=== PATIENT | female | born 1990 | race Caucasian/White ===

== ENCOUNTER 2017-02-17 16:06 | Emergency (ER) | payer MEDICAID ==
[2017-02-17 16:14] VITALS: BP 99/61
--- NOTE | 2017-02-17 16:39 | UC ---
General HPI - HPI Summary HPI Summary: complaint of finding a tick on her left leg today unsure of how long it was attached but probably less than 24 hours another bite site on the same leg denies fever and fatigue - History of Current Complaint Chief Complaint: UCSkin Stated Complaint: TICK BITE Time Seen by Provider: 02/17/17 16:32 Hx Obtained From: Patient - Allergy/Home Medications Allergies/Adverse Reactions: Allergies Allergy/AdvReac Type Severity Reaction Status Date / Time No Known Allergies Allergy Verified 02/17/17 16:07 PMH/Surg Hx/FS Hx/Imm Hx Previously Healthy: Yes - Surgical History Surgical History: Yes Surgery Procedure, Year, and Place: left ear - Family History Known Family History: Negative: Cardiac Disease, Hypertension, Diabetes - Social History Occupation: Employed Full-time Lives: With Family Alcohol Use: Occasionally Substance Use Type: None Smoking Status (MU): Never Smoked Tobacco Review of Systems Constitutional: Negative Skin: Rash Eyes: Negative ENT: Negative Respiratory: Negative Cardiovascular: Negative Gastrointestinal: Negative Genitourinary: Negative Motor: Negative Neurovascular: Negative Musculoskeletal: Negative Neurological: Negative Psychological: Negative All Other Systems Reviewed And Are Negative: Yes Physical Exam Triage Information Reviewed: Yes Appearance: No Pain Distress, Well-Nourished Vital Signs: Initial Vital Signs Temp 99.7 F 02/17/17 16:08 Pulse 63 02/17/17 16:08 Resp 16 02/17/17 16:08 BP 99/61 02/17/17 16:08 Pulse Ox 100 02/17/17 16:08 Vital Signs Reviewed: Yes Eyes: Positive: Conjunctiva Clear ENT: Positive: Pharynx normal, Nasal congestion, TMs normal Neck: Positive: No Lymphadenopathy Respiratory: Positive: Lungs clear, Normal breath sounds, No respiratory distress, No accessory muscle use Cardiovascular: Positive: RRR, No Murmur, Pulses Normal Musculoskeletal Exam: Normal Neurological: Positive: Alert Psychological Exam: Normal Skin: Positive: Other - left thigh with two areas [id number] of erythema Course/Dx - Course Course Of Treatment: exam completed. will give prophylactic dose of doxycycline. discussed finding a primary care provider -infomration givene to patient - Differential Dx - Multi-Symptom Provider Diagnoses: tick bite Discharge - Discharge Plan Condition: Stable Disposition: HOME Prescriptions: DOXYcycline CAP(*) [DOXYcycline 100MG CAP(*)] 100 mg PO DAILY #2 cap Patient Education Materials: Tick Bite (ED) Referrals: [facility] [Outside] Additional Instructions: Please start antibiotic as directed Increase fluids and rest Take acetaminophen or ibuprofen for fever or pain Please review your discharge instructions. If your symptoms do not improve please call your primary care provider or return to urgent care.
== END 2017-02-17 16:57 | disposition home or self-care (01) ==
LOC: UCEAST 16:06
DX: S70.362A Insect bite (nonvenomous), left thigh, initial encounter (principal); W57.XXXA Bitten or stung by nonvenomous insect and other nonvenomous arthropods, initial encounter; Y93.9 Activity, unspecified; Y92.9 Unspecified place or not applicable; Y99.9 Unspecified external cause status
CPT/HCPCS: 99202; G0463

== ENCOUNTER 2017-02-26 12:24 | Emergency (ER) | payer MEDICAID ==
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
[2017-02-26 14:50] VITALS: BP 95/60
== END 2017-02-26 14:45 | disposition home or self-care (01) ==
LOC: UCEAST 12:24
DX: H92.02 Otalgia, left ear (principal)
CPT/HCPCS: 99212; G0463

== ENCOUNTER 2017-03-09 14:32 | Observation (INO) | payer MEDICAID ==
[2017-03-09] MEDS ORDERED: Famotidine IV* 10 MG/ML 2 ML (20 mg) IV SLOW PU ONE (15:47)
[2017-03-09] MEDS ORDERED: Ondansetron INJ* 2 MG/ML VIAL IV ONE (15:47)
[2017-03-09] MEDS ORDERED: Ketorolac INJ* 30 MG/ML 1 ML VIAL IV ONE (15:57)
[2017-03-09 16:49] LABS: Hematocrit 47 % (35-47); Hemoglobin 15.5 g/dl (12.0-16.0); Mean Corpuscular HGB Conc 33 g/dl (31-36); Mean Corpuscular Hemoglobin 29 pg (27-31); Mean Corpuscular Volume 88 fL (80-97); Mean Platelet Volume 8 um3 (7.4-10.4); Red Blood Count 5.33 10^6/ul (4.0-5.4); Red Cell Distribution Width 13 % (10.5-15); White Blood Count 28.4 10^3/ul (3.5-10.8)
[2017-03-09 16:51] LABS: Add Diff/Slide Review? Slide Review Added; Comments Flag Yes
[2017-03-09 16:56] LABS: POC Potassium 3.2 mmol/L (3.5-4.9); POC Sodium 143 mmol/L (138-146)
[2017-03-09 16:57] LABS: Anion Gap 12 mmol/L (2-11); EGFR African American 130.1 (>60); EGFR Non-African American 101.1 (>60); Manual Entry Verification MD; POC CO2 Carbon Dioxide 27 mmol/L (24-29); POC Chloride 104 mmol/L (98-109); POC Glucose 196 mg/dL (70-105)
[2017-03-09] MEDS ORDERED: hydrOXYzine HCL TAB* 50 MG PO ONE (17:37)
[2017-03-09 18:13] LABS: ALT 13 U/L (7-52); AST 16 U/L (13-39); Albumin 3.6 g/dL (3.2-5.2); Alkaline Phosphatase 40 U/L (34-104); BUN/Creatinine Ratio 12.8 (8-20); Blood Urea Nitrogen 10 mg/dL (6-24); CO2 Carbon Dioxide 23 mmol/L (22-32); Calcium 8.6 mg/dL (8.6-10.3); EGFR African American 114.8 (>60); EGFR Non-African American 89.3 (>60); Globulin 2.5 g/dL (2-4); Glucose 198 mg/dL (70-100); Total Protein 6.1 g/dL (6.4-8.9)
[2017-03-09] MEDS ORDERED: Ondansetron INJ* 2 MG/ML VIAL IV PRN (18:48)
[2017-03-09] MEDS ORDERED: EPINEPHrine AMP 1 MG/ML IM PRN (18:52)
[2017-03-09 22:17] LABS: Anion Gap 9 mmol/L (2-11); Chloride 108 mmol/L (101-111); Potassium 3.4 mmol/L (3.5-5.0); Sodium 140 mmol/L (133-145)
[2017-03-09] MEDS: Famotidine IV* 10 MG/ML 2 ML (20 mg) IV SCH (23:30)
[2017-03-09] MEDS: diPHENhydraMINE IV* 50 MG/ML 1 ml VIAL (BENADRYL) IV SCH (23:30)
[2017-03-10 04:23] VITALS: BP 99/51
--- NOTE | 2017-03-10 06:24 | HP ---
HOSPITAL MEDICINE HISTORY AND PHYSICAL: DATE OF ADMISSION: 03/09/17 PRIMARY CARE PHYSICIAN: None. ATTENDING PHYSICIAN: Dr. Pham Carty * (dictation provided by Michela Hein NP ). CHIEF COMPLAINT: Allergic rash. HISTORY OF PRESENT ILLNESS: Ms. 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 Ms. Elena states that she has been in her normal state of health with no acute complaints today. She was outside when she was stung by several flying insects. Unfortunately she did not have her EpiPen. She states that she began to panic. She had nausea, shortness of breath, diaphoresis. She was screaming for help and ultimately EMS was alerted. She was given epinephrine and transported to the ER. In the emergency room, Ms. Bach was doing well and plans were for her to be discharged. However, she developed to her lips and, therefore, plans are for her to be observed overnight. PAST MEDICAL HISTORY: None. MEDICATIONS: None. ALLERGIES: BEE and WASP STINGS. FAMILY HISTORY: Reviewed and noncontributory. SOCIAL HISTORY: No report of alcohol, tobacco, or drug use. She states that her landlord, Lv, would be the healthcare proxy. His phone number is [phone]. REVIEW OF SYSTEMS: A 14-point review of systems was completed with Ms. Elena and those not mentioned above were negative. PHYSICAL EXAMINATION GENERAL: Ms. Elena is sitting in the bed. She is in no acute distress. VITAL SIGNS: Temperature 98.2, heart rate 94, respiratory rate 12, O2 saturation 100% on room air, blood pressure 91/66. HEENT: Normocephalic, EOMs intact, lips swollen, no edema noted to posterior pharynx. LUNGS: Clear to auscultation bilaterally with no accessory muscle use and good aeration. HEART: S1, S2. No murmur, rub, or gallop and regular. ABDOMEN: Soft, nontender with bowel sounds positive x4. EXTREMITIES: No cyanosis or edema. SKIN: Intact. NEUROLOGIC: She is alert. She is oriented x3. She moves all extremities equally. There is no facial asymmetry or focal weakness. Extraocular movements are intact. DIAGNOSTIC STUDIES/LAB DATA: WBC 28.4, hemoglobin 15.5, hematocrit 47, platelet count 236. Sodium 143, potassium 3.2, chloride 104, serum bicarbonate 27, BUN 10, creatinine 0.78. Beta HCG is less than 0.60. Glucose 198. ASSESSMENT: Ms. Elena is a 26-year-old female with known allergy to BEE and WASP, who presented to the hospital after being stung today. She has received epinephrine, famotidine, and hydroxyzine in the ED In the emergency room, she had persistent circumoral swelling and, therefore, she is going to be observed in the hospital overnight. Plans are as follows: 1. Allergic reaction. The patient will continue with famotidine and Benadryl. She will have epinephrine available if needed. 2. DVT prophylaxis with early mobility. 3. Disposition to medical floor or telemetry floor. TIME SPENT: Approximately 60 minutes were spent on the admission of this patient, more than half time spent with the patient at the bedside reviewing the events leading up to this hospitalization, performing the physical examination, and reviewing the plan of care. MICHELA HEIN NP [id number]/[facility] #: [id number] GUS
[2017-03-10] MEDS: Famotidine IV* 10 MG/ML 2 ML (20 mg) IV SCH (06:47)
[2017-03-10] MEDS: diPHENhydraMINE IV* 50 MG/ML 1 ml VIAL (BENADRYL) IV SCH (06:47)
--- NOTE | 2017-03-10 07:47 | PN ---
Subjective Date of Service: 03/10/17 Interval History: Ms. Elena states that she is feeling much better today. She does have some tightness in her throat and chest. She confirms feeling very anxious and states she "needs a good cry." She denies SOB, nausea, or abdominal pain. Objective Active Medications: Diphenhydramine HCl (Benadryl Iv*) 25 mg IV Q6H KYLEE Epinephrine HCl (Epinephrine Amp 1 Mg/Ml*) 0.3 mg IM ONCE PRN Famotidine (Pepcid Iv*) 20 mg IV Q6H KYLEE Ondansetron HCl (Zofran Inj*) 4 mg IV Q6H PRN Vital Signs 03/09/17 03/09/17 03/09/17 19:30 20:00 20:38 Temperature Pulse Rate 88 89 Respiratory 13 17 13 Rate Blood Pressure 103/66 95/62 (mmHg) O2 Sat by Pulse 98 98 Oximetry 03/09/17 03/09/17 03/09/17 20:45 21:00 22:00 Temperature 98.1 F Pulse Rate 86 Respiratory 18 12 14 Rate Blood Pressure 102/58 (mmHg) O2 Sat by Pulse 98 Oximetry 03/09/17 03/09/17 03/09/17 23:00 23:30 23:51 Temperature 97.7 F Pulse Rate 74 Respiratory 18 16 18 Rate Blood Pressure 102/48 (mmHg) O2 Sat by Pulse 99 Oximetry 03/10/17 03/10/17 03/10/17 00:00 00:30 01:00 Temperature Pulse Rate Respiratory 5 14 24 Rate Blood Pressure (mmHg) O2 Sat by Pulse Oximetry 03/10/17 03/10/17 03/10/17 02:00 03:00 04:00 Temperature Pulse Rate Respiratory 17 15 13 Rate Blood Pressure (mmHg) O2 Sat by Pulse Oximetry 03/10/17 03/10/17 04:01 06:47 Temperature 98.6 F Pulse Rate 67 Respiratory 18 16 Rate Blood Pressure 99/51 (mmHg) O2 Sat by Pulse 98 Oximetry Oxygen Devices in Use Now: None Appearance: Female lying in bed in NAD Eyes: No Scleral Icterus Ears/Nose/Mouth/Throat: Mucous Membranes Moist Neck: Trachea Midline Respiratory: Symmetrical Chest Expansion and Respiratory Effort, Clear to Auscultation Cardiovascular: NL Sounds; No Murmurs; No JVD, No Edema Abdominal: NL Sounds; No Tenderness; No Distention Lymphatic: No Cervical Adenopathy Extremities: No Edema Skin: No Rash or Ulcers Neurological: Alert and Oriented x 3, NL Muscle Strength and Tone Nutrition: Taking PO's Result Diagrams: 03/09/17 16:27 03/09/17 16:27 Assess/Plan/Problems-Billing Assessment: Ms. Elena is a 26 yo female with no significant PMH who was admitted on 03/09/17 after an allergic reaction to a bee or wasp sting. - Patient Problems (1) Allergic reaction Comment: - Lip swelling resolved, patient denies SOB or any sense of airway constriction and is breathing easily. - Providing script for epi pens. - Patient does report a very mild sensation of constriction in her chest which I suspect is related to anxiety which patient strongly endorses. She has been monitored on telemetry overnight with no evidence of arrhythmia, will obtain an EKG prior to discharge. Status and Disposition: OBV. Discharge to home.
--- NOTE | 2017-03-10 14:56 | ED ---
I, Trent,David, scribed for Eulogio Monterroso MD on 03/09/17 at 1454 . Allergic Reaction/Systemic - HPI Summary HPI Summary: This 26 y/o female presents to ED via ambulance for allergic reaction after 4 bee/wasp stings around 1330 PM today. Pt confirms positive prior reaction to bee stings with hives and diaphoresis. Positive hives and dyspnea with today's stings. Pt was given 50 mg Benadryl, 10 mg dexamethasone, and 1x epi by EMS COMMUNICATION SPEC , which have alleviate dyspnea. - History of Current Complaint Chief Complaint: EDAllergicReaction Time Seen by Provider: 03/09/17 14:46 Hx Obtained From: Patient Hx Last Menstrual Period: now Onset/Duration: Sudden Onset Timing: Constant Pain Intensity: 3 Pain Scale Used: 0-10 Numeric Aggravating Factor(s): Nothing Alleviating Factor(s): Antihistamines, Epinephrine, Other - dexamethasone Associated Signs And Symptoms: Positive: Difficulty Breathing, Rash - Allergies/Home Medications Allergies/Adverse Reactions: Allergies Allergy/AdvReac Type Severity Reaction Status Date / Time No Known Allergies Allergy Verified 02/26/17 12:43 PMH/Surg Hx/FS Hx/Imm Hx Endocrine/Hematology History: Denies: Hx Diabetes, Hx Thyroid Disease Cardiovascular History: Denies: Hx Hypertension Respiratory History: Denies: Hx Asthma, Hx Chronic Obstructive Pulmonary Disease (COPD) GI History: Denies: Hx Ulcer - Surgical History Surgery Procedure, Year, and Place: left ear Infectious Disease History: No Infectious Disease History: Denies: Hx Clostridium Difficile, Hx Hepatitis, Hx Human Immunodeficiency Virus (HIV), Hx of Known/Suspected MRSA, Hx Shingles, Hx Tuberculosis, Hx Known/ Suspected VRE, Hx Known/Suspected VRSA, History Other Infectious Disease, Traveled Outside the [place] in Last 30 Days - Family History Known Family History: Negative: Cardiac Disease, Hypertension, Diabetes - Social History Alcohol Use: Occasionally Hx Substance Use: No Substance Use Type: Reports: None Hx Tobacco Use: No Smoking Status (MU): Never Smoked Tobacco Review of Systems Positive: Other - Positive bee stings. Negative: Fever Positive: Shortness Of Breath Positive: Other - hives All Other Systems Reviewed And Are Negative: Yes Physical Exam Triage Information Reviewed: Yes Vital Signs On Initial Exam: Initial Vitals Temp Pulse Resp BP Pulse Ox 97.0 F 95 24 102/70 99 03/09/17 14:33 03/09/17 14:33 03/09/17 14:33 03/09/17 14:33 03/09/17 14:33 Vital Signs Reviewed: Yes Appearance: Positive: Well-Nourished, Ill-Appearing Skin: Positive: Other - diffusely erythematous Head/Face: Positive: Normal Head/Face Inspection Eyes: Positive: Normal ENT: Positive: Normal ENT inspection Neck: Positive: Supple, Nontender Respiratory/Lung Sounds: Negative: Wheezes Cardiovascular: Positive: Normal Abdomen Description: Positive: Nontender, Soft Musculoskeletal: Positive: Normal Neurological: Positive: Normal, Other - Tremors AVPU Assessment: Alert Diagnostics - Vital Signs Vital Signs Temp Pulse Resp BP Pulse Ox 03/09/17 14:42 98.2 F 92 19 118/68 100 03/09/17 14:33 97.0 F 95 24 102/70 99 - Laboratory Lab Results: Lab Results 03/09/17 03/09/17 03/09/17 Range/Units 16:27 16:27 16:27 WBC 28.4 H (3.5-10.8) 10^3/ul RBC 5.33 (4.0-5.4) 10^6/ul Hgb 15.5 (12.0-16.0) g/dl Hct 47 (35-47) % MCV 88 (80-97) fL MCH 29 (27-31) pg MCHC 33 (31-36) g/dl RDW 13 (10.5-15) % Plt Count 236 (150-450) 10^3/ul MPV 8 (7.4-10.4) um3 Neut % (Auto) 93.8 H (38-83) % Lymph % (Auto) 3.7 L (25-47) % Hale % (Auto) 2.2 (1-9) % Eos % (Auto) 0 (0-6) % Baso % (Auto) 0.3 (0-2) % Absolute Neuts (auto) 26.6 H (1.5-7.7) 10^3/ul Absolute Lymphs (auto) 1.1 (1.0-4.8) 10^3/ul Absolute Monos (auto) 0.6 (0-0.8) 10^3/ul Absolute Eos (auto) 0 (0-0.6) 10^3/ul Absolute Basos (auto) 0.1 (0-0.2) 10^3/ul Absolute Nucleated RBC 0.01 10^3/ul Nucleated RBC % 0 POC Venous Sodium 143 (138-146) mmol/L Sodium 140 (133-145) mmol/L POC Venous Potassium 3.2 L (3.5-4.9) mmol/L Potassium 3.4 L (3.5-5.0) mmol/L POC Venous Chloride 104 (98-109) mmol/L Chloride 108 (101-111) mmol/L Carbon Dioxide 23 (22-32) mmol/L POC Venous Total CO2 27 (24-29) mmol/L Anion Gap 9 12 H (2-11) mmol/L BUN 10 (6-24) mg/dL POC Venous BUN 10 (8-26) mg/dL Creatinine 0.78 (0.51-0.95) mg/dL POC Venous Creatinine 0.70 (0.6-1.3) mg/dL Est GFR ( Amer) 114.8 130.1 (>60) Est GFR (Non-Af Amer) 89.3 101.1 (>60) BUN/Creatinine Ratio 12.8 14.3 (8-20) Glucose 198 H (70-100) mg/dL POC Venous Glucose 196 H (70-105) mg/dL Calcium 8.6 (8.6-10.3) mg/dL Total Bilirubin 0.90 (0.2-1.0) mg/dL AST 16 (13-39) U/L ALT 13 (7-52) U/L Alkaline Phosphatase 40 (34-104) U/L Total Protein 6.1 L (6.4-8.9) g/dL Albumin 3.6 (3.2-5.2) g/dL Globulin 2.5 (2-4) g/dL Albumin/Globulin Ratio 1.4 (1-3) Beta HCG, Quant < 0.60 mIU/mL Result Diagrams: 03/09/17 16:27 03/09/17 16:27 Lab Statement: Any lab studies that have been ordered have been reviewed, and results considered in the medical decision making process. Re-Evaluation - Re-Evaluation First Eval Re-Evaluation Time: 15:55 Second Eval Re-Evaluation Time: 17:19 Third Eval Re-Evaluation Time: 18:12 Change: Worse Comment: Pt reports chest tightness. Allergic Reaction Course/Dx - Course Course Of Treatment: Ms. Elena had a significant allergic reaction to an insect bite/sting today. She improved initially with medications but then began to worsen again when the epi wore off. I consulted the hospitalists for her safety. - Diagnoses Provider Diagnoses: Anaphylactic reaction - Provider Notifications Discussed Care Of Patient With: Pham Carty Time Discussed With Above Provider: 18:15 Discharge - Discharge Plan Condition: Stable Disposition: ADMITTED TO [facility] documentation as recorded by the Trent portillo Soohyun accurately reflects the service I personally performed and the decisions made by me, Eulogio Monterroso MD.
== END 2017-03-10 08:20 | disposition home or self-care (01) ==
LOC: ED 14:32 → MEDTELE 19:14
PROVIDERS: ADMIT Internal Medicine; ATTEND Internal Medicine
DX: T63.441A Toxic effect of venom of bees, accidental (unintentional), initial encounter (principal); R06.02 Shortness of breath; R11.0 Nausea; R61 Generalized hyperhidrosis; R22.0 Localized swelling, mass and lump, head; L50.9 Urticaria, unspecified; R07.89 Other chest pain
CPT/HCPCS: 36415; 80048; 80053; 84702; 85025; 93005; 96374; 96375; 99284; A9270-GY; G0378; J1200; J1885; J2405

== ENCOUNTER 2017-03-10 17:09 | Emergency (ER) | payer MEDICAID ==
[2017-03-10] MEDS ORDERED: diPHENhydraMINE IV* 50 MG/ML 1 ml VIAL (BENADRYL) IV ONE (19:06)
[2017-03-10] MEDS ORDERED: diPHENhydraMINE IV* 50 MG/ML 1 ml VIAL (BENADRYL) ONE ×2 (19:07)
[2017-03-10] MEDS ORDERED: Famotidine IV* 10 MG/ML 2 ML (20 mg) IV SLOW PU ONE (19:17)
[2017-03-10] MEDS ORDERED: predniSONE TAB* 20 MG PO ONE (19:17)
[2017-03-10] MEDS ORDERED: Ondansetron INJ* 2 MG/ML VIAL IV ONE (19:17)
[2017-03-10] MEDS ORDERED: Dexamethasone IV* 4 MG/ML 1 ML (4 MG) IV SLOW PU ONE (19:19)
--- NOTE | 2017-03-10 19:32 | ED ---
Allergic Reaction/Systemic - HPI Summary HPI Summary: 26 female presents with complaints of having an allergic reaction to 6-7 wasp stings yesterday 03/09/17. 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 Patient states she was brought in via ambulance last night, given epi and decadron. Was observed over night and went home this morning around 8am. Was not given any medications to take at home. Given Benadryl before discharge at 8am. Has not taken any other medications today. States her hives on her face appear to have worsened although hives on her extremities and trunk have improved. She denies any respiratory distress however admits to having a tight chest, especially when taking deep breaths. She also states she is nauseous and nervous as she almost yesterday. No PMHx. No medications. No other complaints at this time. No swelling in throat or difficulty swallowing. - History of Current Complaint Chief Complaint: EDAllergicReaction Time Seen by Provider: 03/10/17 19:06 Hx Obtained From: Patient Hx Last Menstrual Period: now Onset/Duration: Sudden Onset, Started days ago - yesterday Timing: Constant Severity Initially: Severe Severity Currently: Moderate Pain Intensity: 0 Pain Scale Used: 0-10 Numeric Location: Diffuse Character: Swelling, Pruritus, Hives Aggravating Factor(s): Nothing Alleviating Factor(s): Antihistamines, Epinephrine Associated Signs And Symptoms: Positive: Cough Wheezing - chest tightnesss, Rash - Related Hx Possible Reaction To: Insect - wasp - Allergies/Home Medications Allergies/Adverse Reactions: Allergies Allergy/AdvReac Type Severity Reaction Status Date / Time Bee Venom Allergy Anaphylatic Verified 03/10/17 19:34 Shock PMH/Surg Hx/FS Hx/Imm Hx Endocrine/Hematology History: Denies: Hx Diabetes, Hx Thyroid Disease Cardiovascular History: Denies: Hx Hypertension Respiratory History: Denies: Hx Asthma, Hx Chronic Obstructive Pulmonary Disease (COPD) GI History: Denies: Hx Ulcer Sensory History: Denies: Hx Contacts or Glasses, Hx Hearing Aid Opthamlomology History: Denies: Hx Contacts or Glasses - Surgical History Surgery Procedure, Year, and Place: left ear - Immunization History Immunizations Up to Date: Yes Infectious Disease History: Denies: Hx Clostridium Difficile, Hx Hepatitis, Hx Human Immunodeficiency Virus (HIV), Hx of Known/Suspected MRSA, Hx Shingles, Hx Tuberculosis, Hx Known/ Suspected VRE, Hx Known/Suspected VRSA, History Other Infectious Disease, Traveled Outside the [place] in Last 30 Days - Family History Known Family History: Positive: None Negative: Cardiac Disease, Hypertension, Diabetes - Social History Alcohol Use: Occasionally Hx Substance Use: No Substance Use Type: Reports: None Hx Tobacco Use: No Smoking Status (MU): Never Smoked Tobacco Review of Systems Constitutional: Negative Cardiovascular: Negative Positive: Other - tightness Respiratory: Negative Gastrointestinal: Negative Musculoskeletal: Negative Positive: Rash - hives Positive: Weakness All Other Systems Reviewed And Are Negative: Yes Physical Exam Triage Information Reviewed: Yes Vital Signs On Initial Exam: Initial Vitals Temp Pulse Resp BP Pulse Ox 100.3 F 111 20 102/73 100 03/10/17 17:20 03/10/17 17:20 03/10/17 17:20 03/10/17 17:20 03/10/17 17:20 Vital Signs Reviewed: Yes Appearance: Positive: Well-Appearing, No Pain Distress, Well-Nourished Skin: Positive: Warm, Skin Color Reflects Adequate Perfusion, Dry, Erythema @ - throughout face, and on extremities, chest, diffuse- urticaria. has improved since last night however still present, patient states face rash has seemed to worsen since last night Head/Face: Positive: Normal Head/Face Inspection - besides urticaria as stated above Eyes: Positive: Normal, Conjunctiva Clear ENT: Positive: Normal ENT inspection, Hearing grossly normal, Pharynx normal, TMs normal, Other - no edema of tongue. Negative: Trismus, Muffled/hoarse voice Neck: Positive: Supple, Nontender, No Lymphadenopathy Respiratory/Lung Sounds: Positive: Clear to Auscultation, Breath Sounds Present. Negative: Rales, Rhonchi, Wheezes Cardiovascular: Positive: Normal, RRR, Pulses are Symmetrical in both Upper and Lower Extremities. Negative: Murmur, Rub Abdomen Description: Positive: Nontender, Soft Bowel Sounds: Positive: Present Musculoskeletal: Positive: Normal, Strength/ROM Intact Neurological: Positive: Normal, Sensory/Motor Intact, Alert, Oriented to Person Place, Time Psychiatric: Positive: Affect/Mood Appropriate, Anxious Diagnostics - Vital Signs Vital Signs Temp Pulse Resp BP Pulse Ox 03/10/17 18:06 99.9 F 98 20 101/75 99 03/10/17 17:20 100.3 F 111 20 102/73 100 - Laboratory Lab Statement: Any lab studies that have been ordered have been reviewed, and results considered in the medical decision making process. Re-Evaluation - Re-Evaluation First Eval Re-Evaluation Time: 20:51 Change: Improved - patient had significant improvement of symptoms after medications, facial rash appeared much better. Allergic Reaction Course/Dx - Course Course Of Treatment: given benadryl, famotidine and decadron for urticaria/ allergen. zofran for nausea. had relief. appears medications ran out and she was experiencing similar symptoms again. due to no life threatening symptoms or signs will d/c home with steroid and benadryl to continue for 7 days. Patient aware and agrees with plan. Had significant relief in rash while in ED. Aware of worsening signs and symptoms to watch out for. Already has script for epi pen. Follow up with PCP. - Diagnoses Differential Diagnosis/HQI/PQRI: Positive: Anaphylaxis, Local Allergic Reaction , Urticaria Provider Diagnoses: Allergic reaction to bee sting, Urticaria Discharge - Discharge Plan Condition: Stable Disposition: HOME Patient Education Materials: Urticaria (ED), Anaphylaxis (ED) Referrals: No Primary Care Phys,NOPCP [Primary Care Provider] - [facility] [Outside] Additional Instructions: Take medications as prescribed to avoid having allergic reaction symptoms. Take for 7 days. Prednisone in the morning and benadryl at night. If you feel you need additional medication throughout the day you may take another dose of benadryl. If symptoms worsen or you have difficult breathing, throat swelling please seek medical attention promptly. Follow up with PCP.
[2017-03-10] MEDS ORDERED: diPHENhydraMINE PO* 50 MG PO ONE (21:14)
[2017-03-10] MEDS ORDERED: diPHENhydraMINE PO* 25 MG ONE ×2 (21:14)
[2017-03-10 21:23] VITALS: BP 108/55
== END 2017-03-10 21:23 | disposition home or self-care (01) ==
LOC: ED 17:09
DX: T63.441A Toxic effect of venom of bees, accidental (unintentional), initial encounter (principal); L50.9 Urticaria, unspecified; R05 Cough; R06.2 Wheezing; Y92.9 Unspecified place or not applicable
CPT/HCPCS: 99282; A9270-GY; J1100; J1200; J2405

== ENCOUNTER 2017-03-11 23:34 | Emergency (ER) | payer MEDICAID ==
[2017-03-12] MEDS ORDERED: Famotidine IV* 10 MG/ML 2 ML (20 mg) IV SLOW PU ONE (00:09)
[2017-03-12] MEDS ORDERED: diPHENhydraMINE IV* 50 MG/ML 1 ml VIAL (BENADRYL) IV ONE (00:09)
--- NOTE | 2017-03-12 00:52 | ED ---
I, Trent,David, scribed for Kenton Edge MD on 03/11/17 at 2359 . Allergic Reaction/Systemic - HPI Summary HPI Summary: This 26 y/o female presents to ED for recurrent throat closing and difficulty breathing since today PM. Pt was previously seen in ED due to bee sting 2 days ago and admitted. Pt was again seen for similar complaints yesterday, after which pt was discharged from ED. She states that she has been taking prednisone and Benadryl earlier today without much relief. Pt is currently requesting admission. - History of Current Complaint Chief Complaint: EDAllergicReaction Time Seen by Provider: 03/11/17 23:49 Hx Obtained From: Patient, Medical Records Hx Last Menstrual Period: now Onset/Duration: Sudden Onset Timing: Constant Pain Intensity: 0 Pain Scale Used: 0-10 Numeric Aggravating Factor(s): Nothing Alleviating Factor(s): Nothing Associated Signs And Symptoms: Positive: Difficulty Breathing, Throat Tightening - Allergies/Home Medications Allergies/Adverse Reactions: Allergies Allergy/AdvReac Type Severity Reaction Status Date / Time Bee Venom Allergy Anaphylatic Verified 03/11/17 23:38 Shock PMH/Surg Hx/FS Hx/Imm Hx Endocrine/Hematology History: Denies: Hx Diabetes, Hx Thyroid Disease Cardiovascular History: Denies: Hx Hypertension Respiratory History: Denies: Hx Asthma, Hx Chronic Obstructive Pulmonary Disease (COPD) GI History: Denies: Hx Ulcer Sensory History: Denies: Hx Contacts or Glasses, Hx Hearing Aid Opthamlomology History: Denies: Hx Contacts or Glasses - Surgical History Surgery Procedure, Year, and Place: left ear Infectious Disease History: No Infectious Disease History: Denies: Hx Clostridium Difficile, Hx Hepatitis, Hx Human Immunodeficiency Virus (HIV), Hx of Known/Suspected MRSA, Hx Shingles, Hx Tuberculosis, Hx Known/ Suspected VRE, Hx Known/Suspected VRSA, History Other Infectious Disease, Traveled Outside the [place] in Last 30 Days - Family History Known Family History: Negative: Cardiac Disease, Hypertension, Diabetes - Social History Alcohol Use: Occasionally Hx Substance Use: No Substance Use Type: Reports: None Hx Tobacco Use: No Smoking Status (MU): Never Smoked Tobacco Review of Systems Negative: Fever Positive: Other - throat closing Positive: Shortness Of Breath All Other Systems Reviewed And Are Negative: Yes Physical Exam Triage Information Reviewed: Yes Vital Signs On Initial Exam: Initial Vitals Temp Pulse Resp BP Pulse Ox 98.7 F 69 16 112/67 97 03/11/17 23:39 03/11/17 23:39 03/11/17 23:39 03/11/17 23:39 03/11/17 23:39 Vital Signs Reviewed: Yes Appearance: Positive: Well-Appearing, No Pain Distress Skin: Positive: Warm, Other - patchy area of urticaria Eyes: Positive: PHUONG ENT: Positive: Pharynx normal. Negative: Pharyngeal erythema Neck: Positive: Supple Respiratory/Lung Sounds: Positive: Clear to Auscultation, Breath Sounds Present Cardiovascular: Positive: RRR Abdomen Description: Positive: Nontender, Soft Bowel Sounds: Positive: Present Musculoskeletal: Positive: Strength/ROM Intact Neurological: Positive: Alert, Oriented to Person Place, Time Diagnostics - Vital Signs Vital Signs Temp Pulse Resp BP Pulse Ox 03/11/17 23:39 98.7 F 69 16 112/67 97 - Laboratory Lab Statement: Any lab studies that have been ordered have been reviewed, and results considered in the medical decision making process. Re-Evaluation - Re-Evaluation First Eval Change: Improved Allergic Reaction Course/Dx - Diagnoses Provider Diagnoses: Allergic reaction Discharge - Discharge Plan Condition: Improved Disposition: HOME Prescriptions: Famotidine TAB* [Pepcid 20 MG TAB*] 20 mg PO BID #20 tab diPHENhydraMINE PO* [Benadryl PO 25 MG TAB*] 25 mg PO Q6H #20 tab Patient Education Materials: General Allergic Reaction (ED) Referrals: Timothy Murray MD [Medical Doctor] - 2 Days Akbar Strong NP [Primary Care Provider] - 2 Days The documentation as recorded by the Trent portillo Soohyun accurately reflects the service I personally performed and the decisions made by , Kenton Edge MD.
[2017-03-12 02:18] VITALS: BP 105/69
== END 2017-03-12 02:23 | disposition home or self-care (01) ==
LOC: ED 23:34
DX: T78.40XA Allergy, unspecified, initial encounter (principal); R06.02 Shortness of breath; W57.XXXA Bitten or stung by nonvenomous insect and other nonvenomous arthropods, initial encounter
CPT/HCPCS: 96365; 96366; 99283; J1200

== ENCOUNTER 2017-05-17 17:43 | Emergency (ER) | payer MEDICAID, OTHER ==
[2017-05-17 18:06] VITALS: BP 112/70
[2017-05-17 20:01] LABS: Hematocrit 44 % (35-47); Hemoglobin 14.9 g/dl (12.0-16.0); Mean Corpuscular HGB Conc 34 g/dl (31-36); Mean Corpuscular Hemoglobin 30 pg (27-31); Mean Corpuscular Volume 86 fL (80-97); Mean Platelet Volume 9 um3 (7.4-10.4); Red Blood Count 5.04 10^6/ul (4.0-5.4); Red Cell Distribution Width 13 % (10.5-15); White Blood Count 10.5 10^3/ul (3.5-10.8)
[2017-05-17 20:11] LABS: Albumin 4.7 g/dL (3.2-5.2); BUN/Creatinine Ratio 16.4 (8-20); C Reactive Protein 2.63 mg/L (< 5.00); Calcium 9.8 mg/dL (8.6-10.3); EGFR African American 135.8 (>60); EGFR Non-African American 105.6 (>60); Globulin 3.2 g/dL (2-4); Total Bilirubin 0.5 mg/dL (0.2-1.0); Total Protein 7.9 g/dL (6.4-8.9)
[2017-05-17 20:30] LABS: Potassium 4.1 mmol/L (3.5-5.0)
[2017-05-17] MEDS ORDERED: DOXYcycline CAP(*) 100 MG PO ONE (20:55)
--- NOTE | 2017-05-17 21:13 | ED ---
Complex/Multi-Sys Presentation - HPI Summary HPI Summary: 27 female presents with complaints of being bit by a tick on left leg on Thursday05/15/17. States she removed the tick as soon as it was attaching to her. Admits to it now being red. Had testing done at her homeopathic doctor and states it was too early to test for lyme. She is worried about having lyme as she was hiking today and experienced some dizziness and nausea that resolved quickly. Wants to be tested for lyme and prophylactically treated. Denies bullseye rash. Patient also complains of b/l ear pain, with the right being worse than the left. Patient states it has been ongoing intermittently. Denies any other complaints at this time. No chest pain or SOB. No vomiting or abdominal pain. No PMHx. Has not taken any medication. Did apply clove oil into ear with some relief, one time. - History Of Current Complaint Chief Complaint: EDGeneral Time Seen by Provider: 05/17/17 19:46 Hx Obtained From: Patient Onset/Duration: Sudden Onset, Lasting Days Timing: Seconds Severity Currently: None Aggravating Factor(s): none Alleviating Factor(s): clove oil in ear Associated Signs And Symptoms: Positive: Dizziness - resolved, Nausea - resolved - Allergies/Home Medications Allergies/Adverse Reactions: Allergies Allergy/AdvReac Type Severity Reaction Status Date / Time Bee Venom Allergy Anaphylatic Verified 03/11/17 23:38 Shock PMH/Surg Hx/FS Hx/Imm Hx Endocrine/Hematology History: Denies: Hx Diabetes, Hx Thyroid Disease Cardiovascular History: Denies: Hx Hypertension Respiratory History: Denies: Hx Asthma, Hx Chronic Obstructive Pulmonary Disease (COPD) GI History: Denies: Hx Ulcer Sensory History: Denies: Hx Contacts or Glasses, Hx Hearing Aid Opthamlomology History: Denies: Hx Contacts or Glasses - Surgical History Surgery Procedure, Year, and Place: left ear - Immunization History Immunizations Up to Date: Yes Infectious Disease History: Yes Infectious Disease History: Denies: Hx Clostridium Difficile, Hx Hepatitis, Hx Human Immunodeficiency Virus (HIV), Hx of Known/Suspected MRSA, Hx Shingles, Hx Tuberculosis, Hx Known/ Suspected VRE, Hx Known/Suspected VRSA, History Other Infectious Disease, Traveled Outside the [place] in Last 30 Days - Family History Known Family History: Positive: None Negative: Cardiac Disease, Hypertension, Diabetes - Social History Alcohol Use: Occasionally Hx Substance Use: No Substance Use Type: Reports: None Hx Tobacco Use: No Smoking Status (MU): Never Smoked Tobacco Review of Systems Constitutional: Negative Positive: Ear Ache Cardiovascular: Negative Respiratory: Negative Gastrointestinal: Negative Musculoskeletal: Negative Positive: Rash - tick bite left leg Neurological: Other - dizzines, resolved All Other Systems Reviewed And Are Negative: Yes Physical Exam Triage Information Reviewed: Yes Vital Signs On Initial Exam: Initial Vitals Temp Pulse Resp BP Pulse Ox 98.8 F 88 17 112/70 98 05/17/17 17:53 05/17/17 17:53 05/17/17 17:53 05/17/17 17:53 05/17/17 17:53 Vital Signs Reviewed: Yes Appearance: Positive: Well-Appearing, No Pain Distress, Well-Nourished Skin: Positive: Warm, Skin Color Reflects Adequate Perfusion, Dry, Cold, Erythema @ - small erythematous area to left leg at tick bite wound, no surrounding cellulitis or erythema migrans, no swelling or discharge. no tick body parts are still attached. no FB. rest of skin exam normal. Negative: Numb , Cyanosis @, Mass @ Head/Face: Positive: Normal Head/Face Inspection. Negative: TMJ Tenderness Eyes: Positive: EOMI, PHUONG, Conjunctiva Clear ENT: Positive: Normal ENT inspection, Hearing grossly normal, Pharynx normal, TMs normal - EAC right ear with discharge, cerumen and erythema, appears infected, normal left EAC at this time. Negative: TM bulging, TM dull, TM red, Tonsillar swelling, Tonsillar exudate Neck: Positive: Supple, Nontender, No Lymphadenopathy Respiratory/Lung Sounds: Positive: Clear to Auscultation, Breath Sounds Present. Negative: Rales, Rhonchi, Wheezes Cardiovascular: Positive: Normal, RRR, Pulses are Symmetrical in both Upper and Lower Extremities. Negative: Murmur, Rub Abdomen Description: Positive: Nontender, Soft Bowel Sounds: Positive: Present Musculoskeletal: Positive: Normal, Strength/ROM Intact. Negative: Limited @, Pain @ Neurological: Positive: Normal, Sensory/Motor Intact, Alert, Oriented to Person Place, Time, Normal Gait Psychiatric: Positive: Affect/Mood Appropriate Diagnostics - Vital Signs Vital Signs Temp Pulse Resp BP Pulse Ox 05/17/17 17:53 98.8 F 88 17 112/70 98 - Laboratory Lab Results: Lab Results 05/17/17 05/17/17 Range/Units 18:46 18:46 WBC 10.5 (3.5-10.8) 10^3/ul RBC 5.04 (4.0-5.4) 10^6/ul Hgb 14.9 (12.0-16.0) g/dl Hct 44 (35-47) % MCV 86 (80-97) fL MCH 30 (27-31) pg MCHC 34 (31-36) g/dl RDW 13 (10.5-15) % Plt Count 136 L (150-450) 10^3/ul MPV 9 (7.4-10.4) um3 Neut % (Auto) 66.2 (38-83) % Lymph % (Auto) 28.2 (25-47) % [place] % (Auto) 4.1 (1-9) % Eos % (Auto) 0.7 (0-6) % Baso % (Auto) 0.8 (0-2) % Absolute Neuts (auto) 7.0 (1.5-7.7) 10^3/ul Absolute Lymphs (auto) 3.0 (1.0-4.8) 10^3/ul Absolute Monos (auto) 0.4 (0-0.8) 10^3/ul Absolute Eos (auto) 0.1 (0-0.6) 10^3/ul Absolute Basos (auto) 0.1 (0-0.2) 10^3/ul Absolute Nucleated RBC 0.03 10^3/ul Nucleated RBC % 0.3 Sodium 135 (133-145) mmol/L Potassium 4.1 (3.5-5.0) mmol/L Chloride 101 (101-111) mmol/L Carbon Dioxide 27 (22-32) mmol/L Anion Gap 7 (2-11) mmol/L BUN 11 (6-24) mg/dL Creatinine 0.67 (0.51-0.95) mg/dL Est GFR ( Amer) 135.8 (>60) Est GFR (Non-Af Amer) 105.6 (>60) BUN/Creatinine Ratio 16.4 (8-20) Glucose 91 (70-100) mg/dL Calcium 9.8 (8.6-10.3) mg/dL Total Bilirubin 0.50 (0.2-1.0) mg/dL AST 15 (13-39) U/L ALT 13 (7-52) U/L Alkaline Phosphatase 54 (34-104) U/L C-Reactive Protein 2.63 (< 5.00) mg/L Total Protein 7.9 (6.4-8.9) g/dL Albumin 4.7 (3.2-5.2) g/dL Globulin 3.2 (2-4) g/dL Albumin/Globulin Ratio 1.5 (1-3) Lipase 29 (11.0-82.0) U/L Result Diagrams: 05/17/17 18:46 05/17/17 18:46 Lab Statement: Any lab studies that have been ordered have been reviewed, and results considered in the medical decision making process. Complex Multi-Symp Course/Dx Course Of Treatment: appears to be suffering otits externa will treat, along with cerumen impaction. given prophylactic dose of doxy for lyme per patient request and meets requirements. no concern for any other emergent etiology. also tested blood for lyme although patient was educated that it may not show up as it is too early. Rest of labs normal. no tick still attached. keep wound clean and dry. aware of worsening signs and symptoms to watch out for. Follow up pcp. return if worsening symptoms. patient agrees and understands. - Diagnoses Differential Diagnoses/HQI/PQRI: Other - tick bite, lyme disease, erythema migrans, otitis media, cerumen impaction, otitis externa Provider Diagnoses: Otitis externa of right ear, Tick bite of left lower leg Discharge - Discharge Plan Condition: Stable Disposition: HOME Prescriptions: Carbamide Peroxide 6.5% OTIC* [DEBROX 6.5% Otic*] 5 drop BOTH EARS BID #1 bottle Ciproflox/Dexameth OTIC.SUSP* [Ciprodex OTIC.SUSP*] 4 drop .SEE ORDER BID #1 btl Patient Education Materials: Doxycycline (By mouth), Lyme Disease (ED), Otitis Externa (ED), Tick Bite (ED) Referrals: Akbar Strong, REPLANTER [Primary Care Provider] - Additional Instructions: Take prescribed doxycyline by mouth, both pills, one time for lyme disease prevention. Use prescribed ear drops to help with was build up and infection. Do not submerge ears under water. Drink plenty of fluids. Ibuprofen/tylenol for pain and discomfort as needed. Follow up with PCP If new or worsening symptoms please seek medical attention promptly. You will hear about lyme disease lab results when received, if you do not hear please call [phone].
[2017-05-19 18:09] LABS: B garinii/B afzelii PCR Negative (Negative); B mayonii PCR Negative (Negative)
== END 2017-05-17 21:27 | disposition home or self-care (01) ==
LOC: ED 17:43
DX: H60.91 Unspecified otitis externa, right ear (principal); S81.852A Open bite, left lower leg, initial encounter; R42 Dizziness and giddiness; R11.0 Nausea; H92.09 Otalgia, unspecified ear; R21 Rash and other nonspecific skin eruption
CPT/HCPCS: 36415; 80053; 83690; 85025; 86140; 87476; 87798; 99282; A9270-GY

== ENCOUNTER 2017-08-29 18:04 | Emergency (ER) | payer OTHER ==
--- NOTE | 2017-08-29 19:10 | ED ---
Allergic Reaction/Systemic - HPI Summary HPI Summary: 27F presents with SOB today. She states she was in the cafe and felt SOB out of nowhere. She realized that she had not taken her prednisone dose today which made her poor anxious. She states she called 911 because she thought she was having an allergic reaction. She states two days ago she was given an allergy shot and had an allergic reaction where she felt dizzy, SOB, and chest pain so was given epi and steroid for 3 days. today was suppose to be the last day. She states the SOB has resolved. She denies any chest pain, abdominal pain, n/v, or sore throat. She states she feels fine now so it might have been a panic attack. - History of Current Complaint Chief Complaint: EDPrescriptionNeeded Time Seen by Provider: 08/29/17 18:17 Hx Last Menstrual Period: now Pain Intensity: 0 - Allergies/Home Medications Allergies/Adverse Reactions: Allergies Allergy/AdvReac Type Severity Reaction Status Date / Time Bee Venom Allergy Anaphylatic Verified 03/11/17 23:38 Shock PMH/Surg Hx/FS Hx/Imm Hx Endocrine/Hematology History: Denies: Hx Diabetes, Hx Thyroid Disease Cardiovascular History: Denies: Hx Hypertension Respiratory History: Denies: Hx Asthma, Hx Chronic Obstructive Pulmonary Disease (COPD) GI History: Denies: Hx Ulcer Sensory History: Denies: Hx Contacts or Glasses, Hx Hearing Aid Opthamlomology History: Denies: Hx Contacts or Glasses - Surgical History Surgery Procedure, Year, and Place: left ear Infectious Disease History: No Infectious Disease History: Denies: Hx Clostridium Difficile, Hx Hepatitis, Hx Human Immunodeficiency Virus (HIV), Hx of Known/Suspected MRSA, Hx Shingles, Hx Tuberculosis, Hx Known/ Suspected VRE, Hx Known/Suspected VRSA, History Other Infectious Disease, Traveled Outside the [place] in Last 30 Days - Family History Known Family History: Positive: None Negative: Cardiac Disease, Hypertension, Diabetes - Social History Alcohol Use: Occasionally Hx Substance Use: No Substance Use Type: Reports: None Hx Tobacco Use: No Smoking Status (MU): Never Smoked Tobacco Review of Systems Negative: Fever Negative: Chest Pain Positive: Shortness Of Breath. Negative: Cough Negative: Abdominal Pain All Other Systems Reviewed And Are Negative: Yes Physical Exam Triage Information Reviewed: Yes Vital Signs On Initial Exam: Initial Vitals Temp Pulse Resp BP Pulse Ox 99.5 F 79 16 107/76 99 08/29/17 18:10 08/29/17 18:10 08/29/17 18:10 08/29/17 18:10 08/29/17 18:10 Vital Signs Reviewed: Yes Appearance: Positive: Well-Appearing Skin: Positive: Warm, Dry Head/Face: Positive: Normal Head/Face Inspection Eyes: Positive: Normal, EOMI, PHUONG, Conjunctiva Clear ENT: Positive: Normal ENT inspection, Pharynx normal, TMs normal Respiratory/Lung Sounds: Positive: Clear to Auscultation, Breath Sounds Present Cardiovascular: Positive: Normal, RRR Abdomen Description: Positive: Nontender, Soft Bowel Sounds: Positive: Present Musculoskeletal: Positive: Normal Neurological: Positive: Normal Psychiatric: Positive: Anxious - Isabela Coma Scale Coma Scale Total: 15 Diagnostics - Vital Signs Vital Signs Temp Pulse Resp BP Pulse Ox 08/29/17 18:10 99.5 F 79 16 107/76 99 - Laboratory Lab Statement: Any lab studies that have been ordered have been reviewed, and results considered in the medical decision making process. Allergic Reaction Course/Dx - Course Course Of Treatment: 27F presents with SOB today. She states she was in the cafe and felt SOB out of nowhere. She realized that she had not taken her prednisone dose today which made her poor anxious. She states she called 911 because she thought she was having an allergic reaction. She states two days ago she was given an allergy shot and had an allergic reaction where she felt dizzy, SOB, and chest pain so was given epi and steroid for 3 days. today was suppose to be the last day. She states the SOB has resolved. She denies any chest pain, abdominal pain, n/v, or sore throat. She states she feels fine now so it might have been a panic attack. on exam lungs CTA. heart RR. pharnyx normal. discussed that if this occurs to take a bendaryl because will help if is allergic reaction and if is anxiety. patient understand and agrees with plan. - Diagnoses Differential Diagnosis/HQI/PQRI: Positive: Anaphylaxis, Local Allergic Reaction , Other - SOB, PE Provider Diagnoses: Shortness of breath Discharge - Discharge Plan Condition: Good Disposition: HOME Referrals: Akbar Strong MAIL ORDER BILLER [Primary Care Provider] - Additional Instructions: If allergies symptoms return take up to two Benadryl Follow up with operations tech as scheduled Return to ED if develop any new or worsening symptoms
[2017-08-29 19:53] VITALS: BP 123/69
== END 2017-08-29 19:50 | disposition home or self-care (01) ==
LOC: ED 18:04
DX: R06.02 Shortness of breath (principal)
CPT/HCPCS: 99282

== ENCOUNTER 2018-12-23 02:34 | Emergency (ER) | payer OTHER ==
[2018-12-23] MEDS ORDERED: NS 0.9% 1000 ML** 1,000 ML IV ONE (02:45)
[2018-12-23] MEDS ORDERED: methylPREDNISolone 125 MG* 2 ML VIAL IV ONE (02:46)
[2018-12-23] MEDS ORDERED: Metoclopramide IV* 5 MG/ML 2 ML VIAL IV SLOW PU ONE (02:46)
--- NOTE | 2018-12-23 02:47 | ED ---
Allergic Reaction/Systemic - HPI Summary HPI Summary: This patient is a 28 year old F brought in by ambulance to [facility] with a chief complaint of hives that began after applying essential oil to her chest. The patient rates the pain 0/10 in severity. Symptoms aggravated by nothing. Symptoms alleviated by nothing. Patient reports SOB and nausea. Patient states she took her EPI pen after noticing his symptoms. Patient state she has an EPI pen for her allergy to bee venom. - History of Current Complaint Chief Complaint: EDAllergicReaction Time Seen by Provider: 12/23/18 02:41 Hx Obtained From: Patient Hx Last Menstrual Period: now Onset/Duration: Sudden Onset, Started hours ago, Still Present Severity Initially: Mild Severity Currently: None Pain Intensity: 0 Pain Scale Used: 0-10 Numeric Aggravating Factor(s): Nothing Alleviating Factor(s): Nothing Associated Signs And Symptoms: Positive: Difficulty Breathing, Nausea - Allergies/Home Medications Allergies/Adverse Reactions: Allergies Allergy/AdvReac Type Severity Reaction Status Date / Time MS Bee Venom [Bee Venom] Allergy Anaphylatic Verified 12/23/18 02:39 Shock PMH/Surg Hx/FS Hx/Imm Hx Previously Healthy: Yes Endocrine/Hematology History: Denies: Hx Diabetes, Hx Thyroid Disease Cardiovascular History: Denies: Hx Hypertension Respiratory History: Denies: Hx Asthma, Hx Chronic Obstructive Pulmonary Disease (COPD) GI History: Denies: Hx Ulcer Sensory History: Denies: Hx Contacts or Glasses, Hx Hearing Aid Opthamlomology History: Denies: Hx Contacts or Glasses - Surgical History Surgery Procedure, Year, and Place: left ear Infectious Disease History: No Infectious Disease History: Denies: Hx Clostridium Difficile, Hx Hepatitis, Hx Human Immunodeficiency Virus (HIV), Hx of Known/Suspected MRSA, Hx Shingles, Hx Tuberculosis, Hx Known/ Suspected VRE, Hx Known/Suspected VRSA, History Other Infectious Disease, Traveled Outside the [place] in Last 30 Days - Family History Known Family History: Positive: None Negative: Cardiac Disease, Hypertension, Diabetes - Social History Occupation: Unemployed Lives: Alone Alcohol Use: Occasionally Hx Substance Use: No Substance Use Type: Reports: None Hx Tobacco Use: No Smoking Status (MU): Never Smoked Tobacco Review of Systems Positive: Shortness Of Breath Positive: Nausea Positive: Other - Positive hives All Other Systems Reviewed And Are Negative: Yes Physical Exam - Summary Physical Exam Summary: VITAL SIGNS: Reviewed. GENERAL: Patient is a well-developed and nourished female who is lying comfortable in the stretcher. Patient is not in any acute respiratory distress. HEAD AND FACE: No signs of trauma. No ecchymosis, hematomas or skull depressions. No sinus tenderness. EYES: PERRLA, EOMI x 2, No injected conjunctiva, no nystagmus. EARS: Hearing grossly intact. Ear canals and tympanic membranes are within normal limits. MOUTH: Oropharynx within normal limits. NECK: Supple, trachea is midline, no adenopathy, no JVD, no carotid bruit, no c- spine tenderness, neck with full ROM CHEST: Symmetric, no tenderness at palpation LUNGS: Clear to auscultation bilaterally. No wheezing or crackles. CVS: Regular rate and rhythm, S1 and S2 present, no murmurs or gallops appreciated. ABDOMEN: Soft, non-tender. No signs of distention. No rebound no guarding, and no masses palpated. Bowel sounds are normal. EXTREMITIES: FROM in all major joints, no edema, no cyanosis or clubbing. NEURO: Alert and oriented x 3. No acute neurological deficits. Speech is normal and follows commands. SKIN: Dry and warm Triage Information Reviewed: Yes Vital Signs On Initial Exam: Initial Vitals Temp Pulse Resp BP Pulse Ox 97.5 F 98 16 114/54 100 12/23/18 02:37 12/23/18 02:37 12/23/18 02:37 12/23/18 02:37 12/23/18 02:37 Vital Signs Reviewed: Yes Diagnostics - Vital Signs Vital Signs Temp Pulse Resp BP Pulse Ox 12/23/18 02:37 97.5 F 98 16 114/54 100 - Laboratory Lab Statement: Any lab studies that have been ordered have been reviewed, and results considered in the medical decision making process. Allergic Reaction Course/Dx - Course Course Of Treatment: This patient is a 28 year old F brought in by ambulance to [facility] with a chief complaint of hives that began after applying essential oil to her chest. Physical Exam Findings: Nml. In the ED course the patient was given reglan, fluids, solu-medrol, and Benadryl. Patient will be discharged home with follow up from PCP. The patient is agreeable with this plan. - Diagnoses Provider Diagnoses: Allergic reaction Discharge - Sign-Out/Discharge Documenting (check all that apply): Patient Departure - Discharge home Patient Received Moderate/Deep Sedation with Procedure: No - Discharge Plan Condition: Stable Disposition: HOME Patient Education Materials: General Allergic Reaction (ED) Referrals: Barbie Crockett MD [Primary Care Provider] - 2 Days Additional Instructions: RETURN TO THE EMERGENCY DEPARTMENT FOR NEW OR WORSENING SYMPTOMS - Attestation Statements Document Initiated by Scribe: Yes Documenting Scribe: Kerri Pastro Provider For Whom Scribe is Documenting (Include Credential): Dr. Edenilson Leonard MD Scribe Attestation: Kerri Christopher, scribed for Dr. Edenilson Leonard MD on 12/23/18 at 0421. Status of Scribe Document: Ready
[2018-12-23] MEDS ORDERED: diPHENhydraMINE IV* 50 MG/ML 1 ml VIAL (BENADRYL) IV ONE (03:19)
--- OUTSIDE RECORDS SUMMARY | 2018-12-23 03:30 | XMS REPORT | Continuity of Care Document ---
:1990 External Reference #:[id number] Author Name SHADE Perrin Address [address] [place] [address] Care Team Providers Name Role Phone Geovanna Ramos M.D. Care Team Information Student Teacher Unavailable Payers Date Identification Numbers Payment Provider Subscriber Effective: 2017 Policy Number: [id number] [facility] Kaylynn Elena Group Number: JAMIA [id number] [address] Group Name: [place] [address] PayID: [id number] Effective: 2017 Policy Number: [id number] [facility] Kaylynn Elena Expires: 2017 Group Number: [id number] [facility] Group Name: Medicaid [address] PayID: [id number] [place] [address] Advance Directives Description No Information Available Problems Active Problems Provider Date Toxic effect of venom of wasps, accidental Geovanna Ramos M.D. Onset: 2016 (unintentional), initial encounter Toxic effect of venom of bees, accidental Geovanna Ramos M.D. Onset: 2016 (unintentional), initial encounter Family History Description No Information Available Social History Type Date Description Comments Sex Unknown Marital Status Legal Status: Never Lives With Roommate Home Environment [place] the [place] Home Environment Water Source: [facility] Home Environment Does not use air residential nurse Home Environment Does not have an air conditioner Home Environment Stairs are present Home Environment There is no basement Home Environment Cotton Comforter Home Environment Mattress is 5 years old Home Environment Mattress is not encased in an allergy proof case Home Environment Regular Mattress Home Environment Pillows are not encased in an allergy proof case Home Environment Pillows are rubber (foam) Home Environment Does not use a dehumidifier Home Environment There are no draperies in the home Home Environment The home is not akria Home Environment The floors are carpeted Home Environment Uses propane gas heating Home Environment Uses natural gas heating Smoke-Free Home is smoke-free Smoke-Free Work is smoke-free Pets 1 cat Occupation Teacher [employer], 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, Plans to study Energy healing ETOH Use Rarely consumes alcohol Tobacco Use Start: Unknown Patient has never smoked Recreational Drug Use Denies Drug Use Allergies, Adverse Reactions, Alerts Description No Known Drug Allergies Medications Active Medications SIG Qnty Indications Ordering Date Provider Levalbuterol Tartrate 2 puffs every 4 15gm Z23 Shama Urrutia, 12/10/2018 hours as needed [facility] 45mcg/Act Aerosol for cough, wheezing, shortness of breath and chest tightness Epipen 2-Nicholas use as directed 4units Shama Urrutia, 06/10/2017 for a severe [facility] 0.3mg/0.3ML Solution allergic reaction, Auto-Inject mylan generic ok Cetirizine HCL Take One Tablet By Unknown 10mg Mouth Every Day Tablets Medications Administered in Office Medication SIG Qnty Indications Ordering Provider Date Injection Allergy Injection 09/10/2017 Injection Injection Allergy Injection 09/03/2017 Injection Injection Allergy Injection 08/27/2017 Injection Injection Allergy Injection 08/20/2017 Injection Immunizations Description No Information Available Vital Signs Date Vital Result Comment 08/27/2017 1:57pm Height 67 inches 5'7" Weight 155.00 lb Weight 70.308 kg Respiratory Rate 16 /min Heart Rate 83 /min O2 % BldC Oximetry 99 % BP Systolic 114 mmHg BP Diastolic 67 mmHg BMI (Body Mass Index) 24.3 kg/m2 08/27/2017 11:17am Height 67 inches 5'7" Weight 154.00 lb Weight 69.854 kg Respiratory Rate 18 /min Heart Rate 77 /min O2 % BldC Oximetry 98 % BP Systolic 120 mmHg BP Diastolic 79 mmHg BMI (Body Mass Index) 24.1 kg/m2 08/13/2017 11:06am Height 67 inches 5'7" Weight 154.00 lb Weight 69.854 kg Respiratory Rate 18 /min Heart Rate 78 /min O2 % BldC Oximetry 98 % BP Systolic 114 mmHg BP Diastolic 58 mmHg BMI (Body Mass Index) 24.1 kg/m2 06/10/2017 1:27pm Height 67 inches 5'7" Weight 141.00 lb Weight 63.958 kg Respiratory Rate 18 /min Heart Rate 89 /min O2 % BldC Oximetry 98 % BP Systolic 109 mmHg BP Diastolic 73 mmHg BMI (Body Mass Index) 22.1 kg/m2 Results Test Date Facility Test Result H/L Range Note Rast AAA Insects 07/17/2017 [facility] Rast Honeybee 0.35 kU/L 1 Panel 101 DATES [facility] [place] [address] [phone] Rast Paperwasp Venom 8.20 kU/L 2 Rast White Face Hornet 2.48 kU/L 3 Rast Yellow Hornet 2.65 kU/L 4 Rast Yellow Jacket 44.4 kU/L 5 Laboratory test finding 07/17/2017 [facility] Tryptase 6.9 ng/ mL <11.5 6 [address] [place] [address] [phone] Immunoglobulin E (Ige) 470 kU/L Abnormal <=214 7 1 Class 1 (Equivocal 0.35-0.69) Test Performed by: [facility] [place] [address] 2 Class 3 (Positive 3.50-17.4) Test Performed by: [address] [address] 3 Class 2 (Positive 0.70-3.49) Test Performed by: [facility] - [address] [address] 4 Class 2 (Positive 0.70-3.49) Test Performed by: [address] [address] 5 Class 4 (Strongly Positive 17.5-49.9) Test Performed by: [address] [address] 6 Test Performed by: [address] [address] 7 Test Performed by: [facility] [address], [place] [address] Procedures Date Code Description Status 12/10/2018 36318 Skin Test Scratch # Of Units ____ Completed 12/10/2018 07049 Pulmonary Function Test Completed 09/10/2017 28929 Injection Completed 09/03/2017 53004 Injection Completed 08/27/2017 90486 Injection Completed 08/20/2017 76058 Injection Completed 08/14/2017 48716 Extract Stings-Four Completed 08/14/2017 13361 Extract Stings-Four Completed 08/13/2017 09263 [facility] Tests 11-15 Completed Encounters Type Date Location Provider Dx Diagnosis Office Visit 08/27/2017 Linda Urrutia T63.461A Toxic effect of 11:20a BONUS CLERK-C venom of wasps, accidental, init T63.441D Toxic effect of venom of bees, accidental, subs Office Visit 08/13/2017 11:40a Linda Ramos T63.441D Toxic effect of M.D. venom of bees, accidental, subs T63.441D Toxic effect of venom of bees, accidental, subs Office Visit 06/10/2017 1:20p Linda Ramos T63.441A Toxic effect of M.D. venom of bees, accidental, init T63.461A Toxic effect of venom of wasps, accidental, init Plan of Treatment 08/27/2017 - MELISA Perrin-CT63.461A Toxic effect of venom of wasps, accidental (unintentional), initial oynkzieaiJ26.441D Toxic effect of venom of bees, accidental (unintentional), subsequent encounterFollow up:6 monthsRecommendations:Continue all medications as prescribed.Refrain from wearing perfumes/scented colognes while visitingour office. Risks and benefits of Allergy injections reviewed. Given the severity of symptoms, and risk to a sting, Allergy injections will be started in 1-2 weeks You can take Zyrtec 10 mg the dayof the shots * IF your insurance if ever changed to an Essential plan, we do not take it*
[2018-12-23 04:55] VITALS: BP 101/51
== END 2018-12-23 04:45 | disposition home or self-care (01) ==
LOC: ED 02:34
DX: T78.49XA Other allergy, initial encounter (principal); R11.0 Nausea; R06.02 Shortness of breath; X58.XXXA Exposure to other specified factors, initial encounter
CPT/HCPCS: 96361; 96374; 96375; 99283; J1200; J2765; J2930

== ENCOUNTER 2018-12-25 21:52 | Emergency (ER) | payer OTHER ==
[2018-12-25] MEDS ORDERED: ALPRAZolam TAB* 0.5 MG PO ONE (22:09)
--- NOTE | 2018-12-25 22:10 | ED ---
Allergic Reaction/Systemic - HPI Summary HPI Summary: This patient is a 28 year old female presenting to [facility] with a chief complaint of possible allergic reaction. The patient reports throat tightness and shortness of breath. She believes she might have been exposed to something she may not have known she was allergic to. The patient was here 2 days ago to get an epinephrine injection for another allergic reaction. She states she may be having panic attacks and felt anxiety. - History of Current Complaint Hx Obtained From: Patient Hx Last Menstrual Period: now Pain Intensity: 0 Pain Scale Used: 0-10 Numeric - Allergies/Home Medications Allergies/Adverse Reactions: Allergies Allergy/AdvReac Type Severity Reaction Status Date / Time MS Bee Venom [Bee Venom] Allergy Anaphylatic Verified 12/23/18 02:39 Shock PMH/Surg Hx/FS Hx/Imm Hx Endocrine/Hematology History: Denies: Hx Diabetes, Hx Thyroid Disease Cardiovascular History: Denies: Hx Hypertension Respiratory History: Denies: Hx Asthma, Hx Chronic Obstructive Pulmonary Disease (COPD) GI History: Denies: Hx Ulcer Sensory History: Denies: Hx Contacts or Glasses, Hx Hearing Aid Opthamlomology History: Denies: Hx Contacts or Glasses - Surgical History Surgery Procedure, Year, and Place: left ear Infectious Disease History: No Infectious Disease History: Denies: Hx Clostridium Difficile, Hx Hepatitis, Hx Human Immunodeficiency Virus (HIV), Hx of Known/Suspected MRSA, Hx Shingles, Hx Tuberculosis, Hx Known/ Suspected VRE, Hx Known/Suspected VRSA, History Other Infectious Disease, Traveled Outside the [place] in Last 30 Days - Family History Known Family History: Positive: None Negative: Cardiac Disease, Hypertension, Diabetes - Social History Alcohol Use: Occasionally Hx Substance Use: No Substance Use Type: Reports: None Hx Tobacco Use: No Smoking Status (MU): Never Smoked Tobacco Review of Systems Positive: Sore Throat - Tightness Positive: Shortness Of Breath Positive: Anxious All Other Systems Reviewed And Are Negative: Yes Physical Exam - Summary Physical Exam Summary: VITAL SIGNS: Reviewed. GENERAL: Patient is a well-developed and nourished FEMALE who is lying comfortable in the stretcher. Patient is not in any acute respiratory distress. HEAD AND FACE: No signs of trauma. No ecchymosis, hematomas or skull depressions. No sinus tenderness. EYES: PERRLA, EOMI x 2, No injected conjunctiva, no nystagmus. EARS: Hearing grossly intact. Ear canals and tympanic membranes are within normal limits. MOUTH: Oropharynx within normal limits. NECK: Supple, trachea is midline, no adenopathy, no JVD, no carotid bruit, no c- spine tenderness, neck with full ROM. CHEST: Symmetric, no tenderness at palpation LUNGS: Clear to auscultation bilaterally. No wheezing or crackles. CVS: Regular rate and rhythm, S1 and S2 present, no murmurs or gallops appreciated. ABDOMEN: Soft, non-tender. No signs of distention. No rebound no guarding, and no masses palpated. Bowel sounds are normal. EXTREMITIES: FROM in all major joints, no edema, no cyanosis or clubbing. NEURO: Alert and oriented x 3. No acute neurological deficits. Speech is normal and follows commands. SKIN: Dry and warm Psychological: Anxious Triage Information Reviewed: Yes Vital Signs On Initial Exam: Initial Vitals Temp Pulse Resp BP Pulse Ox 98.5 F 85 16 120/72 99 12/25/18 21:58 12/25/18 21:58 12/25/18 21:58 12/25/18 21:58 12/25/18 21:58 Vital Signs Reviewed: Yes Diagnostics - Vital Signs Vital Signs Temp Pulse Resp BP Pulse Ox 12/25/18 21:58 98.5 F 85 16 120/72 99 - Laboratory Lab Statement: Any lab studies that have been ordered have been reviewed, and results considered in the medical decision making process. Allergic Reaction Course/Dx - Course Course Of Treatment: This patient is a 28 year old female presenting to [facility] with a chief complaint of possible allergic reaction. The patient reports throat tightness and shortness of breath. Labs were unremarkable for an allergic reaction. Patient's symptoms are likely due to anxiety. A plan for discharge was discussed with the patient and she was agreeable with this plan. - Diagnoses Provider Diagnoses: Anxiety Discharge - Sign-Out/Discharge Documenting (check all that apply): Patient Departure - Discharge Patient Received Moderate/Deep Sedation with Procedure: No - Discharge Plan Condition: Stable Disposition: HOME Patient Education Materials: Anxiety (ED) Referrals: Barbie Crockett MD [Primary Care Provider] - Additional Instructions: Return to ED with any new or worsening symptoms. - Attestation Statements Document Initiated by Scribe: Yes Documenting Scribe: Devang Anderson Provider For Whom Scribe is Documenting (Include Credential): Edenilson Leonard MD Scribe Attestation: Devang Christopher, scribed for Edenilson Leonard MD on 12/25/18 at 2317. Status of Scribe Document: Ready
[2018-12-25 23:26] VITALS: BP 120/69
== END 2018-12-25 23:26 | disposition home or self-care (01) ==
LOC: ED 21:52
DX: F41.9 Anxiety disorder, unspecified (principal)
CPT/HCPCS: 99282; A9270-GY